=== PATIENT | male | born 1980 | race African-American/Black ===

== ENCOUNTER 2017-02-01 00:06 | Emergency (ER) | payer SELFPAY ==
[2017-02-01] MEDS ORDERED: IBUPROFEN 600 MG TABLET PO ONE (00:14)
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
== END 2017-02-01 00:20 | disposition left against medical advice (07) ==
LOC: ER 00:06
DX: S56.912A Strain of unspecified muscles, fascia and tendons at forearm level, left arm, initial encounter (principal); M25.532 Pain in left wrist; W23.1XXA Caught, crushed, jammed, or pinched between stationary objects, initial encounter; Y93.H9 Activity, other involving exterior property and land maintenance, building and construction
CPT/HCPCS: 99282

== ENCOUNTER 2017-02-11 23:30 | Emergency (ER) | payer SELFPAY ==
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
== END 2017-02-12 00:30 | disposition left against medical advice (07) ==
LOC: ER 23:30
DX: S01.511A Laceration without foreign body of lip, initial encounter (principal); X58.XXXA Exposure to other specified factors, initial encounter
CPT/HCPCS: 99281